=== PATIENT | female | born 1945 | race Caucasian/White ===

== ENCOUNTER 2022-03-04 12:22 | Emergency (ER) | payer MEDICARE, OTHER ==
[2022-03-04 12:35] VITALS: BP 150/90
--- NOTE | 2022-03-04 13:21 | ED Physician Documentation ---
History of Present Illness - Stated complaint Stated Complaint: COUGH,RUNNY NOSE - Chief complaint Chief Complaint: General - Additonal information Additional information: 76-year-old female presents the emergency department requesting confirmatory testing of a rapid COVID-19 test that was positive at home. She is recently been on a cruise and is visiting the [place]. She began having some generalized fatigue body aches and a dry cough 3 days ago. She took a test this morning that was positive. She is scheduled to fly back home to [facility] on Sunday and wants direction on if it is safe to fly. Past medical history most significant for hypertension well controlled. She is a non-smoker. No history of diabetes or immune compromise. No history of COPD. Review of Systems Constitutional: reports: Chills, Myalgias, Fatigue Eyes: reports: Reviewed and negative Nose: reports: Rhinorrhea / runny nose Throat: reports: Reviewed and negative Cardiac: reports: Reviewed and negative Respiratory: reports: Cough. denies: Dyspnea GI: reports: Reviewed and negative : reports: Reviewed and negative Skin: reports: Reviewed and negative Musculoskeletal: reports: Reviewed and negative PD PAST MEDICAL HISTORY - Present Medications Home Medications: Ambulatory Orders Medication Instructions Recorded Confirmed DULoxetine [Cymbalta] 30 mg PO DAILY 03/04/22 03/04/22 Famotidine 40 mg PO DAILY 03/04/22 03/04/22 Gabapentin [Neurontin] 300,600 mg PO TID 03/04/22 03/04/22 Losartan/Hydrochlorothiazide 1 tab ORAL DAILY 03/04/22 03/04/22 [Losartan-Hctz 100-12.5 mg Tab] Simvastatin [Zocor] 40 mg PO DAILY PM 03/04/22 03/04/22 - Allergies Allergies/Adverse Reactions: Allergies Allergy/AdvReac Type Severity Reaction Status Date / Time No Known Drug Allergies Allergy Verified 03/04/22 12:29 PD ED PE NORMAL - General General: Alert and oriented X 3, No acute distress, Well developed/nourished - HEENT HEENT: Atraumatic, Moist mucous membranes, Pharynx benign - Neck Neck: Supple, no meningeal sign, No adenopathy, No JVD - Cardiac Cardiac: RRR, No murmur, No gallop - Respiratory Respiratory: No respiratory distress, Clear bilaterally - Abdomen Abdomen: Normal bowel sounds, Non tender - Back Back: No CVA TTP, No spinal TTP - Derm Derm: Normal color, Warm and dry, No rash - Extremities Extremities: No deformity, No tenderness to palpate, Normal ROM s pain - Neuro Neuro: Alert and oriented X 3, 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 She began to get what she describes as a head cold 3 days ago. No fevers. No dyspnea. Unremarkable cardiopulmonary auscultation. She is scheduled to fly back home to [facility] in about 72 hours time. 9 past medical history most significant for hypertension hyperlipidemia. She is on a statin. I did offer mono. Advair antiviral therapy given her advanced age and history of hypertension however she declined this today. We then discussed that rapid tests are very specific and quite sensitive and I did not feel that she would benefit from confirmatory testing. She was comfortable with this discussion. We discussed emergent return precautions and routine care of what appears to be a viral upper respiratory infection likely COVID-19. Departure - Departure Disposition: 01 Home, Self Care Clinical Impression: COVID-19 Condition: Stable Record reviewed to determine appropriate education?: Yes Instructions: ED Viral Syndrome Ch Comments: Rose Marie the home tests are very specific as well is quite sensitive for COVID-19. I would trust the test. Current recommendations are for you to isolate for 5 days from the onset of symptoms. Because you are doubly vaccinated and boosted its likely that you will not experience severe symptoms with this COVID-19 infection In general treat this like the common cold. Stay well-hydrated drink lots of fluids. Ibuprofen and Tylenol [id number] for body aches. Return to any emergency department should you develop severe chest pain or anjali rtness of air.
== END 2022-03-04 13:31 | disposition home or self-care (01) ==
LOC: ED 12:22
DX: U07.1 COVID-19 (principal); I10 Essential (primary) hypertension
CPT/HCPCS: 99281; 99282